=== PATIENT | female | born 1990 | race Caucasian/White ===

== ENCOUNTER 2017-11-02 16:07 | Emergency (ER) | payer OTHER ==
[2017-11-02] MEDS ORDERED: ONDANSETRON 4 MG/2 ML VIAL IVP STA (16:25)
[2017-11-02] MEDS ORDERED: SODIUM CHLORIDE 0.9% 1,000 ML IV ONE (16:25)
[2017-11-02] MEDS ORDERED: LOPERAMIDE 2 MG CAPSULE PO STA (16:25)
[2017-11-02] MEDS ORDERED: KETOROLAC 60 MG/2 ML VIAL IVP STA (16:25)
--- NOTE | 2017-11-02 16:27 | ED Physician Documentation ---
PD HPI NVD - Stated complaint Stated Complaint: DIARRHEA,VOMITING - Chief complaint Chief Complaint: Abd Pain - History obtained from History obtained from: Patient - History of Present Illness Timing - onset: Other (She got sick with vomiting and diarrhea about 6 days ago , it lasted for 2 days and then got better, with persistent nausea but then over the last 48 hours became much more sick again with vomiting and diarrhea, fevers up to 101.7 at home and body aches. No recent travel, she is on control also doubts . She has no chronic health issues.) Review of Systems Constitutional: reports: Fever, Chills, Myalgias, Fatigue Eyes: denies: Photophobia Ears: denies: Ear pain Nose: reports: Rhinorrhea / runny nose. denies: Congestion Throat: reports: Sore throat Cardiac: denies: Chest pain / pressure, Palpitations Respiratory: reports: Cough. denies: Dyspnea GI: reports: Nausea, Vomiting, Diarrhea. 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 HEENT: Tonsil/Adenoidectomy - Present Medications Home Medications: Ambulatory Orders Medication Instructions Recorded Confirmed Norgestimate-Ethinyl Estradiol 1 tab PO DAILY 06/16/16 06/16/16 [Ortho Tri-Cyclen 28 Tablet] Dicyclomine HCl 20 mg PO QID PRN #20 tablet 11/02/17 Loperamide [Imodium] 2 mg PO QID PRN #10 capsule 11/02/17 Ondansetron HCl [Zofran] 4 mg PO Q6H PRN #10 tablet 11/02/17 Propranolol [Inderal] 10 mg PO DAILY 11/02/17 11/02/17 - Allergies Allergies/Adverse Reactions: Allergies Allergy/AdvReac Type Severity Reaction Status Date / Time No Known Drug Allergies Allergy Verified 11/02/17 16:12 - Social History Does the pt smoke?: No Smoking Status: Never smoker Does the pt drink ETOH?: Yes Does the pt have substance abuse?: No - Immunizations Immunizations are current?: Yes - POLST Patient has POLST: No PD ED PE NORMAL - Vitals Vital signs reviewed: Yes - General General: Alert and oriented X 3, No acute distress, Well developed/nourished - HEENT HEENT: PERRL, EOMI, Ears normal - Neck Neck: Supple, no meningeal sign, No bony TTP - Cardiac Cardiac: RRR, No murmur - Respiratory Respiratory: No respiratory distress, Clear bilaterally - Abdomen Abdomen: Normal bowel sounds, Soft, Non tender - Back Back: No CVA TTP, No spinal TTP - Derm Derm: Normal color, Warm and dry - Neuro Neuro: Alert and oriented X 3, Normal speech - Psych Psych: Normal mood, Normal affect Results - Vitals Vitals: Vital Signs - 24 hr 11/02/17 11/02/17 11/02/17 16:10 16:47 17:31 Temperature 36.3 C L 36.2 C L Heart Rate 70 76 62 Respiratory 16 18 15 Rate Blood Pressure 136/81 H 130/81 H 136/81 H O2 Saturation 98 98 100 Oxygen O2 Source Room air - Labs Labs: Laboratory Tests 11/02/17 11/02/17 11/02/17 16:20 16:24 16:40 WBC 6.9 RBC 4.69 Hgb 14.6 Hct 43.8 MCV 93.5 MCH 31.1 H MCHC 33.3 RDW 13.0 Plt Count 171 MPV 9.3 Neut # 4.3 Lymph # 2.0 [place] # 0.5 Eos # 0.1 Baso # 0.0 Absolute Nucleated RBC 0.01 Nucleated RBC % 0.1 Sodium Potassium Chloride Carbon Dioxide Anion Gap BUN Creatinine Estimated GFR (MDRD) Glucose Calcium Total Bilirubin AST ALT Alkaline Phosphatase Total Protein Albumin Globulin Albumin/Globulin Ratio Lipase Urine Color YELLOW Urine Clarity CLEAR Urine pH 6.0 Ur Specific [place] 1.015 1.015 Urine Protein NEGATIVE Urine Glucose (UA) NEGATIVE Urine Ketones NEGATIVE Urine Occult Blood NEGATIVE Urine Nitrite NEGATIVE Urine Bilirubin NEGATIVE Urine Urobilinogen 0.2 (NORMAL) Ur Leukocyte Esterase NEGATIVE Ur Microscopic Review NOT INDICATED Urine Culture Comments NOT INDICATED Urine HCG, Qual NEGATIVE Influenza A (Rapid) Influenza B (Rapid) Influenza Types A,B Ag 11/02/17 11/02/17 16:40 16:40 WBC RBC Hgb Hct MCV MCH MCHC RDW Plt Count MPV Neut # Lymph # [place] # Eos # Baso # Absolute Nucleated RBC Nucleated RBC % Sodium 136 Potassium 3.9 Chloride 103 Carbon Dioxide 26 Anion Gap 7.0 BUN 16 Creatinine 0.9 Estimated GFR (MDRD) 75 L Glucose 89 Calcium 9.3 Total Bilirubin 0.8 AST 20 ALT 22 Alkaline Phosphatase 44 Total Protein 7.3 Albumin 4.2 Globulin 3.1 Albumin/Globulin Ratio 1.4 Lipase 28 Urine Color Urine Clarity Urine pH Ur Specific [place] Urine Protein Urine Glucose (UA) Urine Ketones Urine Occult Blood Urine Nitrite Urine Bilirubin Urine Urobilinogen Ur Leukocyte Esterase Ur Microscopic Review Urine Culture Comments Urine HCG, Qual Influenza A (Rapid) Negative Influenza B (Rapid) Negative Influenza Types A,B Ag - PD MEDICAL DECISION MAKING - ED course ED course: She presents with what sounds like a viral illness marked by vomiting, body aches, diarrhea and fevers. Examination here is benign as is her lab workup and feeling better after fluids, Toradol, Zofran etc. Departure - Departure Disposition: Home, Self Care Clinical Impression: Vomiting Qualifiers: Vomiting type: unspecified Vomiting Intractability: non-intractable Nausea presence: with nausea Qualified Code(s): R11.2 - Nausea with vomiting, unspecified Diarrhea Qualifiers: Diarrhea type: unspecified type Qualified Code(s): R19.7 - Diarrhea, unspecified Condition: Good Record reviewed to determine appropriate education?: Yes Instructions: ED Diarrhea Viral Prescriptions: Dicyclomine HCl 20 mg PO QID PRN #20 tablet PRN Reason: Abdominal Cramps Loperamide [Imodium] 2 mg PO QID PRN #10 capsule PRN Reason: Diarrhea Ondansetron HCl [Zofran] 4 mg PO Q6H PRN #10 tablet PRN Reason: Nausea / Vomiting Comments: Call your doctor to arrange a follow-up appointment, make the next available appointment. In the interim, return anytime if worse or if new symptoms develop. Your blood pressure was elevated today on check into the emergency department. This does not mean that you have hypertension, it is a common phenomenon to come to the emergency department and have elevated blood pressure. I recommend that you see your primary care physician within the week to have it rechecked when you are feeling better. Forms: Activity restrictions
[2017-11-02 16:31] LABS: BILIRUBIN,URINE NEGATIVE (NEGATIVE); GLUCOSE, URINE (UA) NEGATIVE (NEGATIVE); KETONES,URINE (UA) NEGATIVE (NEGATIVE); LEUKOCYTE ESTERASE, URINE NEGATIVE (NEGATIVE); NITRITE,URINE NEGATIVE (NEGATIVE); OCCULT BLOOD,URINE NEGATIVE (NEGATIVE); PROTEIN,URINE NEGATIVE (NEGATIVE); UROBILINOGEN,URINE 0.2 (NORMAL) E.U./dL (NORMAL)
[2017-11-02 16:34] LABS: CLARITY,URINE CLEAR (CLEAR)
[2017-11-02 16:34] LABS: HCG UR QUAL NEGATIVE
[2017-11-02 16:51] LABS: BASOPHILS % (AUTO) 0.3 %; EOSINOPHILS # (AUTO) 0.1 10^3/uL (0.0-0.7); EOSINOPHILS % (AUTO) 1.9 %; HGB - HEMOGLOBIN 14.6 g/dL (12.0-16.0); LYMPHOCYTES % (AUTO) 28.7 %; MEAN CORPUSCULAR HEMOGLOBIN 31.1 pg (27.0-31.0); MEAN CORPUSCULAR HGB CONC 33.3 g/dL (32.0-36.0); MEAN CORPUSCULAR VOLUME 93.5 fL (81.0-99.0); MEAN PLATELET VOLUME 9.3 fL (7.9-10.8); MONOCYTES # (AUTO) 0.5 10^3/uL (0.0-1.0); NEUTROPHILS # (AUTO) 4.3 10^3/uL (1.5-6.6); NEUTROPHILS % (AUTO) 62.1 %; PLT - PLATELET COUNT 171 10^3/uL (130-450); RED BLOOD COUNT 4.69 10^6/uL (4.20-5.40); WHITE BLOOD COUNT 6.9 x10^3/uL (4.8-10.8)
[2017-11-02 17:04] LABS: ALBUMIN 4.2 g/dL (3.2-5.5); ALBUMIN/GLOBULIN RATIO 1.4 (1.0-2.2); BILIRUBIN,TOTAL 0.8 mg/dL (0.2-1.0); CALCIUM 9.3 mg/dL (8.5-10.3); CREATININE 0.9 mg/dL (0.4-1.0); TOTAL PROTEIN 7.3 g/dL (6.7-8.2)
[2017-11-02 17:33] VITALS: BP 136/81
== END 2017-11-02 18:02 | disposition home or self-care (01) ==
LOC: ED 16:07
DX: R11.2 Nausea with vomiting, unspecified (principal); R19.7 Diarrhea, unspecified; R03.0 Elevated blood-pressure reading, without diagnosis of hypertension; E03.9 Hypothyroidism, unspecified
CPT/HCPCS: 36415; 80053; 81003; 81025; 83690; 85025; 87275; 87276; 96361; 96374; 96375; 99283; 99284; A9270; 81001; 87086

== ENCOUNTER 2017-11-24 10:06 | Emergency (ER) | payer OTHER ==
[2017-11-24 10:36] LABS: BILIRUBIN,URINE NEGATIVE (NEGATIVE); GLUCOSE, URINE (UA) NEGATIVE (NEGATIVE); KETONES,URINE (UA) NEGATIVE (NEGATIVE); LEUKOCYTE ESTERASE, URINE SMALL (NEGATIVE); NITRITE,URINE NEGATIVE (NEGATIVE); OCCULT BLOOD,URINE LARGE (NEGATIVE); PH,URINE 7.5 PH (5.0-7.5); PROTEIN,URINE NEGATIVE (NEGATIVE); UROBILINOGEN,URINE 0.2 (NORMAL) E.U./dL (NORMAL)
[2017-11-24 10:37] LABS: CLARITY,URINE CLOUDY (CLEAR)
[2017-11-24 10:38] LABS: HCG UR QUAL NEGATIVE
[2017-11-24 10:51] LABS: BACTERIA,URINE Few /HPF (None Seen); RBC,URINE TNTC /HPF (0-5); SQUAMOUS EPITHELIAL CELL,UR RARE Squamous (<= Few)
[2017-11-24] MEDS ORDERED: HYDROcod/ACETAM 5/325 MG TABLET PO STA (12:22)
[2017-11-24] MEDS ORDERED: IBUPROFEN 800 MG TABLET PO STA (12:22)
[2017-11-24] MEDS ORDERED: PHENAZOPYRIDINE 100 MG TABLET PO STA (12:23)
--- NOTE | 2017-11-24 12:24 | ED Physician Documentation ---
PD HPI ABD PAIN - Stated complaint Stated Complaint: FEMALE - Chief complaint Chief Complaint: Abd Pain - History obtained from History obtained from: Patient - History of Present Illness Timing - onset: Other (About 4 days of worsening right lower quadrant pain associated with a missed menses despite being on oral contraceptive pills with a normal routine, 21 days on, 7 days off, never had menses despite taking the placebos. Now with hematuria today but no nausea. No vaginal discharge or bleeding. She has had a history of kidney stones but that was more in the back. 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 HEENT: Tonsil/Adenoidectomy - Present Medications Home Medications: Ambulatory Orders Medication Instructions Recorded Confirmed Norgestimate-Ethinyl Estradiol 1 tab PO DAILY 06/16/16 06/16/16 [Ortho Tri-Cyclen 28 Tablet] Dicyclomine HCl 20 mg PO QID PRN #20 tablet 11/02/17 Loperamide [Imodium] 2 mg PO QID PRN #10 capsule 11/02/17 Ondansetron HCl [Zofran] 4 mg PO Q6H PRN #10 tablet 11/02/17 Propranolol [Inderal] 10 mg PO DAILY 11/02/17 11/02/17 HYDROcod/ACETAM 5/325 [[place] 5/325] 1 - 2 ea PO Q6H PRN #7 tablet 11/24/17 Nitrofurantoin Monohyd/M-Cryst 1 tab PO BID 5 Days capsule 11/24/17 [Macrobid 100 mg Capsule] Phenazopyridine HCl [Pyridium] 200 mg PO TID #6 tablet 11/24/17 - Allergies Allergies/Adverse Reactions: Allergies Allergy/AdvReac Type Severity Reaction Status Date / Time No Known Drug Allergies Allergy Verified 11/24/17 10:17 - Social History Does the pt smoke?: No Smoking Status: Never smoker Does the pt drink ETOH?: Yes Does the pt have substance abuse?: No - Immunizations Immunizations are current?: Yes - POLST Patient has POLST: No PD ED PE NORMAL - Vitals Vital signs reviewed: Yes - General General: Alert and oriented X 3, No acute distress - Abdomen Abdomen: Soft, Non tender, Other (No right lower quadrant or right flank tenderness.) - Neuro Neuro: Alert and oriented X 3, Normal speech - Psych Psych: Normal mood, Normal affect Results - Vitals Vitals: Vital Signs - 24 hr 11/24/17 11/24/17 10:13 13:15 Temperature 36.6 C Heart Rate 67 61 Respiratory 18 15 Rate Blood Pressure 151/82 H 142/90 H O2 Saturation 100 95 Oxygen O2 Source Room air - Labs Labs: Laboratory Tests 11/24/17 10:19 Urine Color ORANGE Urine Clarity CLOUDY Urine pH 7.5 Ur Specific [place] 1.010 Urine Protein NEGATIVE Urine Glucose (UA) NEGATIVE Urine Ketones NEGATIVE Urine Occult Blood LARGE H Urine Nitrite NEGATIVE Urine Bilirubin NEGATIVE Urine Urobilinogen 0.2 (NORMAL) Ur Leukocyte Esterase SMALL H Urine RBC TNTC H Urine WBC 4-5 Ur Squamous Epith Cells RARE Squamous Urine Bacteria Few Ur Microscopic Review INDICATED Urine Culture Comments INDICATED Urine HCG, Qual NEGATIVE PD MEDICAL DECISION MAKING - ED course ED course: She presents with symptoms most consistent with cystitis, however she has a lot of hematuria and the pain does not lateralize to this was followed by CT to rule out appendicitis or renal colic, neither which is present and she is treated for hemorrhagic cystitis. Departure - Departure Disposition: Home, Self Care Clinical Impression: Cystitis Condition: Good Record reviewed to determine appropriate education?: Yes Instructions: ED Infec Bladder Female Ch Prescriptions: HYDROcod/ACETAM 5/325 [[place] 5/325] 1 - 2 ea PO Q6H PRN #7 tablet PRN Reason: Pain Nitrofurantoin Monohyd/M-Cryst [Macrobid 100 mg Capsule] 1 tab PO BID 5 Days capsule Phenazopyridine HCl [Pyridium] 200 mg PO TID #6 tablet Comments: Your blood pressure was elevated today on check into the emergency department. This does not mean that you have hypertension, it is a common phenomenon to come to the emergency department and have elevated blood pressure. I recommend that you see your primary care physician within the week to have it rechecked when you are feeling better. We will culture your urine, the results should be done in 48-72 hours. If an antibiotic change is necessary we will call you. Return if worse in the meantime, especially if you develop increasing flank pain, fevers, or cannot keep down the medication. Forms: Activity restrictions
--- NOTE | 2017-11-24 13:45 | CT Report ---
EXAM: CT ABDOMEN AND PELVIS (CT KUB) EXAM DATE: 11/24/2017 01:13 PM. CLINICAL HISTORY: R abd pain, hematuria. COMPARISONS: CT abdomen and pelvis 06/16/2016. TECHNIQUE: Routine axial helical CT imaging was performed through the abdomen and pelvis without IV c ontrast. Reconstructions: Coronal and sagittal. In accordance with CT protocol optimization, one or more of the following dose reduction techniques w ere utilized for this exam: automated exposure control, adjustment of mA and/or KV based on patient s ize, or use of iterative reconstructive technique. FINDINGS: Lung Bases: Small region of centrilobular nodules and associated opacified distal airways in the left lower lobe. Otherwise the visualized lung bases are clear. Right Kidney/Ureter: No stones, hydronephrosis, or hydroureter. No perinephric fat stranding. Left Kidney/Ureter: No stones, hydronephrosis, or hydroureter. No perinephric fat stranding. Other Solid Organs: Noncontrast images of the solid organs are grossly unremarkable. Gallbladder/Bile Ducts: Unremarkable. Peritoneal Cavity: No ascites or pneumoperitoneum. No bowel obstruction or abnormal stool burden. Nor mal appendix. Pelvic Organs: The urinary bladder is incompletely distended but there appears to be mild diffuse wal l thickening. Noncontrast images of the pelvic organs demonstrate no significant abnormality. Vasculature: Within normal limits. Other: No osseous abnormality. IMPRESSION: 1. No hydronephrosis or nephrolithiasis. 2. Possible cystitis. 3. Probable left lower lobe bronchiolitis. [facility] Referring Provider Line: [phone] SITE ID: [id number]
[2017-11-24] MEDS ORDERED: NITROFURANTOIN MACRO 100 MG CAPSULE PO STA (13:56)
[2017-11-24 14:07] VITALS: BP 138/88
== END 2017-11-24 14:06 | disposition home or self-care (01) ==
LOC: ED 10:06
DX: N30.90 Cystitis, unspecified without hematuria (principal); R03.0 Elevated blood-pressure reading, without diagnosis of hypertension; E03.9 Hypothyroidism, unspecified
CPT/HCPCS: 74176; 81001; 81025; 87086; 87181; 99283; A9270; 81003

== ENCOUNTER 2017-11-30 14:10 | Emergency (ER) | payer OTHER ==
[2017-11-30] MEDS ORDERED: AZITHROMYCIN 250 MG TABLET PO STA (16:44)
[2017-11-30] MEDS ORDERED: ALBUTEROL NEB 2.5 MG/3 ML INH STA (16:44)
--- NOTE | 2017-11-30 16:45 | ED Physician Documentation ---
PD HPI URI - Stated complaint Stated Complaint: COUGH,SOA,DIZZY - Chief complaint Chief Complaint: Resp - History obtained from History obtained from: Patient - History of Present Illness Timing - onset: How many weeks ago (4) Timing duration: Weeks (4) Timing details: Gradual onset Pain level max: 6 Pain level now: 5 Associated symptoms: Nasal congestion, Rhinorrhea, Productive cough (green), Dyspnea (wheezing). 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/Adenoidectomy - Present Medications Home Medications: Ambulatory Orders Medication Instructions Recorded Confirmed Norgestimate-Ethinyl Estradiol 1 tab PO DAILY 06/16/16 06/16/16 [Ortho Tri-Cyclen 28 Tablet] Dicyclomine HCl 20 mg PO QID PRN #20 tablet 11/02/17 Loperamide [Imodium] 2 mg PO QID PRN #10 capsule 11/02/17 Ondansetron HCl [Zofran] 4 mg PO Q6H PRN #10 tablet 11/02/17 Propranolol [Inderal] 10 mg PO DAILY 11/02/17 11/02/17 HYDROcod/ACETAM 5/325 [[place] 5/325] 1 - 2 ea PO Q6H PRN #7 tablet 11/24/17 Nitrofurantoin Monohyd/M-Cryst 1 tab PO BID 5 Days capsule 11/24/17 [Macrobid 100 mg Capsule] Phenazopyridine HCl [Pyridium] 200 mg PO TID #6 tablet 11/24/17 Albuterol Sulf [Ventolin Hfa 1 - 2 puffs INH Q4HR PRN #1 inhaler 11/30/17 Inhaler] Azithromycin [Zithromax] 250 mg PO DAILY #4 tablet 11/30/17 - Allergies Allergies/Adverse Reactions: Allergies Allergy/AdvReac Type Severity Reaction Status Date / Time No Known Drug Allergies Allergy Verified 11/24/17 10:17 - Social History Does the pt smoke?: No Smoking Status: Never smoker Does the pt drink ETOH?: Yes Does the pt have substance abuse?: No - Immunizations Immunizations are current?: Yes - POLST Patient has POLST: No PD ED PE NORMAL - Vitals Vital signs reviewed: Yes - General General: Alert and oriented X 3, No acute distress, Well developed/nourished - HEENT HEENT: PERRL, Moist mucous membranes, Pharynx benign, Other (B Tm erythematous, bulging loss of landmarks. fluid present B) - Neck Neck: Supple, no meningeal sign - Cardiac Cardiac: RRR, Strong equal pulses - Respiratory Respiratory: No respiratory distress, Other (wheezing B) - Abdomen Abdomen: Soft, Non tender, Non distended - Derm Derm: Warm and dry, No rash - Neuro Neuro: Alert and oriented X 3 - Psych Psych: Normal mood, Normal affect Results - Vitals Vitals: Vital Signs - 24 hr 11/30/17 11/30/17 11/30/17 14:17 17:05 17:40 Temperature 36.3 C L Heart Rate 85 64 92 Respiratory 18 16 18 Rate Blood Pressure 131/86 H 133/64 H O2 Saturation 95 98 Oxygen O2 Source Room air PD MEDICAL DECISION MAKING - ED course Complexity details: re-evaluated patient, considered differential, d/w patient ED course: Patient is a 27-year-old female presents to the emergency department what appears to be a viral upper respiratory illness with wheezing as well as bilateral acute otitis media. Will place on azithromycin as this would cover an atypical or typical community-acquired pneumonia as well. Will hold chest x- ray at this time. Feels better after nebulizer and will place on inhaler for home. She is well-appearing, nontoxic. No hypoxia. Patient counseled regarding signs and symptoms for which I believe and urgent re-evaluation would be necessary. Patient with good understanding of and agreement to plan and is comfortable going home at this time This document was made in part using voice recognition software. While efforts are made to proofread this document, sound alike and grammatical errors may occur. Departure - Departure Disposition: Home, Self Care Clinical Impression: Viral URI Otitis media Qualifiers: Otitis media type: suppurative Chronicity: acute Laterality: bilateral Recurrence: not specified as recurrent Spontaneous tympanic membrane rupture: without spontaneous rupture Qualified Code(s): H66.003 - Acute suppurative otitis media without spontaneous rupture of ear drum, bilateral Condition: Good Instructions: ED Otitis Media Acute Adult, ED URI Viral W Wheezing Follow-Up: Kwame Land ARNP [Primary Care Provider] - Within 1 week (if not better ) Prescriptions: Albuterol Sulf [Ventolin Hfa Inhaler] 1 - 2 puffs INH Q4HR PRN #1 inhaler PRN Reason: Shortness Of Air/Wheezing Azithromycin [Zithromax] 250 mg PO DAILY #4 tablet Comments: Take all antibiotics until gone. Return if you worsen. Forms: Activity restrictions Discharge Date/Time: 11/30/17 17:40
[2017-11-30 18:20] VITALS: BP 133/64
== END 2017-11-30 17:40 | disposition home or self-care (01) ==
LOC: ED 14:10
DX: J06.9 Acute upper respiratory infection, unspecified (principal); B97.89 Other viral agents as the cause of diseases classified elsewhere; H66.003 Acute suppurative otitis media without spontaneous rupture of ear drum, bilateral; E03.9 Hypothyroidism, unspecified
CPT/HCPCS: 94640; 94664; 99283; A9270; J7613